=== PATIENT | female | born 2000 | race American Indian/Alaskan Native ===

== ENCOUNTER → 2020-11-11 | Outpatient (CLI) | payer OTHER ==
--- NOTE | 2020-11-11 15:45 | REP ---
INDICATION: GROWTH SCAN, SIZE LESS THAN DATES. COMPARISON: 10/21/2020. TECHNIQUE: Real-time sonographic evaluation of the gravid uterus performed. FINDINGS: Estimated gestational age is33 weeks 2 days, EDC 12/28/2020. Today's measurements indicate appropriate growth. Presentation: Cephalic Placenta left, lateral, grade 2, without evidence of placenta previa. heart rate is recorded at 149 beats per minute. Amniotic fluid is subjectively normal. RJ 11.9, normal range 8.2-24.6 Closed cervical length is measured at 4.2 cm. Biometry chart: BPD: 82 mm, 33 weeks 0 days, 47th percentile. HC: 294 mm, 32 weeks 3 days, 38th percentile AC: 286 mm, 32 weeks 5 days, 41st percentile Femur length: 63 mm, 32 weeks 5 days, 42nd percentile HC to AC ratio: 1.03, normal range 0.95-1.13. Estimated weight: 2029g, 47th percentile. SD ratio umbilical artery 3.51, normal range 1.77-3.75 RI 0.71, normal range 0.48-0.74 anatomy: Previously documented and grossly unremarkable. IMPRESSION: Viable single intrauterine gestation as above. <Electronically signed by Robin Stock > 11/11/20 [id number]
== END ==
LOC: M RAD 14:30
PROVIDERS: ATTEND Obstetrics & Gynecology
DX: Z34.03 Encounter for supervision of normal first pregnancy, third trimester (principal); Z3A.33 33 weeks gestation of pregnancy

== ENCOUNTER 2020-12-31 23:26 | Inpatient (IN) | payer OTHER ==
[~2020-12-31] VITALS: Ht 160 cm; Wt 75.8 kg
[2020-12-31] MEDS ORDERED: PREN29CH2 PO (23:40)
[2020-12-31 23:51] VITALS: BP 124/69
[2021-01-01] VITALS (33 sets, daily range): BP systolic 89–139; BP diastolic 47–92
--- OUTSIDE RECORDS SUMMARY | 2021-01-01 02:14 | CCD ---
Author Author [facility] Organization [facility] Address Unknown Phone Unavailable Support Name Relationship Address Phone CHUCKY BETH Next Of Kin [address] [place] [address] [facility] Next Of Kin [address] [place] [address] Unavailable Re-disclosure Warning The records that you are about to access may contain information from federally-assisted alcohol or drug abuse programs. If such information is present, then the following federally mandated warning applies: This information has been disclosed to you from records protected by federal confidentiality rules (42 CFR part 2). The federal rules prohibit you from making any further disclosure of this information unless further disclosure is expressly permitted by the written consent of the person to whom it pertains or as otherwise permitted by 42 CFR part 2. A general authorization for the release of medical or other information is NOT sufficient for this purpose. The Federal rules restrict any use of the information to criminally investigate or prosecute any alcohol or drug abuse patient.The records that you are about to access may contain highly sensitive health information, the redisclosure of which is protected by Article 27-F of the [facility] Public Health law. If you continue you may have access to information: Regarding HIV / AIDS; Provided by facilities licensed or operated by the [facility] Office of Mental Health; or Provided by the [facility] Office for People With Developmental Disabilities. If such information is present, then the following [facility] mandated warning applies: This information has been disclosed to you from confidential records which are protected by state law. State law prohibits you from making any further disclosure of this information without the specific written consent of the person to whom it pertains, or as otherwise permitted by law. Any unauthorized further disclosure in violation of state law may result in a fine or longterm sentence or both. A general authorization for the release of medical or other information is NOT sufficient authorization for further disc losure. Insurance Providers Payer name Policy type / Coverage type Policy ID Covered democrat ID Covered democrat's relationship to [place] Policy [place] Plan Information [employer] [id number]
[2021-01-01] MEDS ORDERED: LR 1,000 ML IV SCH (02:23)
[2021-01-01] MEDS ORDERED: LACTATED RINGER'S 1000 ML IV ONE (02:30)
[2021-01-01] MEDS ORDERED: FENTANYL 2MCG/ML ROPIVACAINE 0.2% IN 0.9% NACL 100ML IVBAG As Ordered ONE (02:38)
[2021-01-01 02:42] LABS: HEMATOCRIT 34.9 % (36.0-47.0); HEMOGLOBIN 11.2 g/dl (12.0-15.5); MEAN CORPUSCULAR HEMOGLOBIN 29.7 pg (27.0-33.0); MEAN CORPUSCULAR HGB CONC 32.1 g/dl (32.0-36.5); MEAN CORPUSCULAR VOLUME 92.6 fl (80.0-96.0); PLATELET COUNT, AUTOMATED 271 10^3/uL (150-450); RED BLOOD COUNT 3.77 10^6/uL (4.00-5.40); WHITE BLOOD COUNT 16.6 10^3/uL (4.0-10.0)
--- NOTE | 2021-01-01 03:01 | HPEPDOC ---
Obstetrical History & Physical General Date of Admission Jan 01, 2021 at 02:11 Primary Care Physician: Rao Bolaños MD History of Present Illness ACTIVE LABOR AT 40.5 WEEKS Chief Complaint: Contractions, term Information Provided By: Patient Age: 20 : 1 Term: 0 Pre-term: 0 Abortions: 0 Livin Care Care: Limited Care Number of Visits: 6 Dating Final EDC: Dec 28, 2020 Final EDC for Daily Update: Dec 28, 2020 Final EDC by: LMP LMP: Jun 27, 2020 1st Trimester Date: Oct 21, 2020 Weeks + Days: 30.2 Estimated Date of Confinement: Dec 28, 2020 EGA at Admission: 40.5 Antepartum Course Diagnos(e)s ACTIVE LABOR AT TERM LIMITED CARE Height (inches): 63 Pre- weight (lbs.): 150 Admission Weight (lbs.): 168 Change in Weight (lbs.): 18 Past Medical History Past Obstetrical History : 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 Past Medical History Medical History NON CONTRIBUTORY Surgical History: Denies/None Family History Significant Family History: No pertinent family hx Social History Social history NON SMOKER NO ETOH NO VAPING NO RECREATIONAL DRUGS Marital Status: Family situation: Spouse/partner home Psychosocial History: No pertinent psych hx * Smoker: non-smoker Alcohol: Denies Drugs: denies Abuse Violence Screening Have you been hit/kicked/slapp: No Have you been sexually assault: No Imunizations Tdap status: current Influenza Status: needs Allergies Coded Allergies: No Known Allergies (Unverified , 12/31/20) Medications Scheduled No115/Iron/Folic Acid ( 19 Chewable Tablet) 1 Each Tab.chew, 1 TAB PO DAILY Physical Examination Physical Examination GENERAL: Alert and oriented times three. BREAST: . ABDOMEN: Gravid and non-tender to touch. FETUS: Is vertex (VTX) by sterile vaginal examination (SVE), fetus is vertex (VTX) by Arthur. HEART RATE: Regular rate and rhythm. LUNGS: Clear to auscultation (CTA). EXTREMITIES: No edema. No clonus. Deep tendon reflexes (DTRs) + . Other physical findings SF HEIGHT 40 CM VERTEX BOWEL SOUNDS ACTIVE NO VAGINAL BLEEDING OR DISCHARGE Vital Signs/I&O Vital Signs Date Time Temp Pulse Resp B/P (MAP) Pulse Ox O2 Delivery O2 Flow Rate FiO2 01/01/21 00:42 90 16 132/75 (94) 12/31/20 23:51 98.6 98 Room Air Laboratory Data 24H LABS Laboratory Tests 2 01/01/21 02:17: Serology Scanned Report Hepatitis B Testing Pertinent Laboratoy Data Blood Type: A+ RBC Antibody Screen: Negative HIV: Negative Hepatitis B: Negative Rapid Plasma Reagin: Nonreactive Rubella: Immune Varicella: Nonreactive Chlamydia/Gonorrhea: Negative Group B Streptococcus: Negative Cystic Fibrosis: Negative Anatomy Ultrasound Placenta Location: Anterior Normal Anatomy: Yes Placenta Previa: No Steroid Therapy Steroid Therapy: No Vaginal Examination Dilation: 5 cm Effacement: 90% Station: -2 Cervical Consistency: Soft Cervical Position: Anterior Presentation: Cephalic presentation Assessment Variability: Moderate Accelerations: Present Decelerations: None Tocometer Contractions: Yes Frequency: every 1-3 min. Duration: less than 60 seconds Strength: palpated as moderate Assessment/Plan Assessment 20-year-old (G)1 para (P)0 at 40.5 weeks by 30.2 -week ultrasound. Presents to Labor and Delivery (L&D) . Plan Admit and orient. Property Management Bookkeeper and consent. Diet: NPO Group B Streptococcus (GBS) [negative]. Labs and intravenous (IV) per unit protocol. Counseled on Pitocin and induction of labor (IOL). Lactated Ringers (LR): Bolus mL, then at mL/hr. Anticipate [normal spontaneous delivery ()]. C-S as appropriate. Labor and Delivery Counseling REVIEWED RISK OF VAGINAL DELIVERY. POSSIBLE LACERATIONS TO VAGINA THAT REQUIRE REPAIR USE OF FORCEPS OR VACUUM RISK CEPHALOHEMATOMA, LACERATIONS SUBDURAL INJURY ADMISSION TO NICU. POSSIBLE BLOOD TRANSFUSION FOR LIFE THREATENING BLEEDING OR HYSTERECTOMY . RISK OF CS DUE TO OR MATERNAL ISSUES . WITH PITOCIN POSSIBLE INCREASE RISK TACHYSYSTOLE AND CS FOR NRFHT EXPRESSED UNDERSTANDING CATEGORY 1 STRIP SAFE TO PROCEED Rao Bolaños MD Jan 01, 2021 02:51
[2021-01-01] MEDS ORDERED: EPIDURAL/PCA KEYS XX PRN (03:30)
[2021-01-01] MEDS ORDERED: ONDANSETRON 4MG/2ML VIAL IV PRN (03:30)
[2021-01-01] MEDS ORDERED: diphenhydrAMINE 50MG/ML VIAL (J1200) IV PRN (03:30)
[2021-01-01] MEDS ORDERED: LACTATED RINGER'S 1000 ML IV PRN (03:30)
[2021-01-01] MEDS ORDERED: EPIDURAL COMMENT XX SCH (03:30)
[2021-01-01] MEDS ORDERED: REFRIGERATOR IV KEYS XX PRN (03:30)
[2021-01-01] MEDS ORDERED: NALOXONE INJ 0.4MG/1ML VIAL (J2310 PER 1MG) IV PRN (03:30)
[2021-01-01] MEDS ORDERED: FENTANYL/ROPIVACAINE/NACL BAG 100 ML EPIDURAL SCH (03:30)
[2021-01-01] MEDS ORDERED: ePHEDrine SULFATE 25 MG/5 ML(5MG/ML) SYRINGE IV PRN (03:30)
--- NOTE | 2021-01-01 04:22 | IPNPDOC ---
Text Note Date of Service The patient was seen on 01/01/21. NOTE assessment post epidural arom clear liquor fully dilated -1 station catagory 1 strip safe to proceed VS,Marshall, I+O VS, Marshall, I+O Item Value Date Time White Blood Count 16.6 10^3/uL H 01/01/21 0233 Red Blood Count 3.77 10^6/uL L 01/01/21 0233 Hemoglobin 11.2 g/dl L 01/01/21 0233 Hematocrit 34.9 % L 01/01/21 0233 Mean Corpuscular Volume 92.6 fl 01/01/21 0233 Mean Corpuscular Hemoglobin 29.7 pg 01/01/21 0233 Mean Corpuscular Hemoglobin Concent 32.1 g/dl 01/01/21 0233 Red Cell Distribution Width 12.7 % 01/01/21 0233 Platelet Count 271 10^3/uL 01/01/21 0233 Nucleated Red Blood Cells % (auto) 0.0 % 01/01/21 0233 Laboratory Tests 01/01/21 02:33 Vital Signs Date Time Temp Pulse Resp B/P (MAP) Pulse Ox O2 Delivery O2 Flow Rate FiO2 01/01/21 00:42 90 16 132/75 (94) 12/31/20 23:51 98.6 98 Room Air Rao Bolaños MD Jan 01, 2021 04:22
[2021-01-01] MEDS ORDERED: OXYTOCIN DRIP 30 UNITS in IV 1 EA IV SCH (04:30)
[2021-01-01 07:25] LABS: CORD GAS ABE A -7.6; CORD GAS HCO3 A 21.8 MEQ/L; CORD GAS O2 SAT A 47.8 %; CORD GAS PCO2 A 60.5 mmHg; CORD GAS PH A 7.175 UNITS; CORD GAS PO2 A 24.8 mmHg; CORD GAS SBC A 17.3 MEQ/L; CORD GAS TCO2 A 23.7 MEQ/L
[2021-01-01 07:27] LABS: CORD GAS ABE V -4.9; CORD GAS HCO3 V 23.3 MEQ/L; CORD GAS O2 SAT V 37.3 %; CORD GAS PCO2 V 55.3 mmHg; CORD GAS PH V 7.242 UNITS; CORD GAS PO2 V 19.2 mmHg
[2021-01-01] MEDS ORDERED: MOM 30ML SUSPENSION UDC PO PRN (07:30)
[2021-01-01] MEDS ORDERED: OXYTOCIN DRIP 30 UNITS in IV 1 EA IV ONE (07:30)
[2021-01-01] MEDS ORDERED: RHOGAM 300 MCG (1500 IU) INJ (J2790) IM SCH (07:30)
[2021-01-01] MEDS ORDERED: METHYLERGONOVINE MALEATE 0.2 MG TAB PO PRN (07:30)
[2021-01-01] MEDS ORDERED: IBUPROFEN 600MG TAB PO PRN (07:30)
[2021-01-01] MEDS ORDERED: ACETAMINOPHEN TAB 650MG DOSE (2X325MG) PO PRN (07:30)
[2021-01-01] MEDS ORDERED: ACETAMINOPHEN 500 MG TAB PO PRN (07:30)
[2021-01-01] MEDS ORDERED: DIBUCAINE 1% OINTMENT 30GM TOP PRN (07:30)
[2021-01-01] MEDS ORDERED: IBUPROFEN 800 MG TAB PO PRN (07:30)
[2021-01-01] MEDS ORDERED: MEASLES,MUMPS,RUBELLA VACCINE INJ (MMR-II) (90707) SC SCH (07:30)
[2021-01-01] MEDS ORDERED: ANUSOL HC CREAM 30GM TOP PRN (07:30)
[2021-01-01] MEDS ORDERED: OXYTOCIN INJ 10 UNITS/ML VIAL (J2590) IV ONE (07:30)
[2021-01-01] MEDS ORDERED: DOCUSATE SODIUM 100MG CAPSULE PO PRN (07:30)
--- NOTE | 2021-01-01 07:38 | DNPDOC ---
[facility] Delivery Note Delivery Note DATE OF DELIVERY: 01/01/21 PREDELIVERY DIAGNOSIS: -/7 weeks' gestation and labor. POST DELIVERY DIAGNOSIS: Delivered. PROCEDURE: low vacuum due to intermittent late with delayed recovery 1 pull and pop off them with mid line episiotomy EGG TRAYER: Dr.E ZAMARRIPA ANESTHESIA: EPIDURAL ESTIMATED BLOOD LOSS: 200 mL. FINDINGS: 6 pound 11 ounce FEMALE , Score 8/9 , nuchal cord 0 DELIVERY SUMMARY: Patient is a 20-year-old 1 now para 1 who was admitted to labor and delivery for ACTIVE LABOR HAD INTERMITTENT LATES WITH SLOW RECOVERY HAD 1 VACUUM WITH POP OFF 40 HG.MID LINE EPISIOTOMY REPAIRED SPONTANEOUS PLACENTA SPHINCTER INTACT . UTERUS CONTRACTED DOWN UNDER PITOCIN Item Value Date Time Cord Arterial Blood pH 7.175 UNITS 01/01/21717 Cord Arterial Blood PCO2 60.5 mmHg 01/01/21717 Cord Arterial Blood PO2 24.8 mmHg 01/01/21717 Cord Arterial Blood HCO3 21.8 MEQ/L 01/01/21717 Cord Arterial Blood Total CO2 23.7 MEQ/L 01/01/21717 Cord Arterial Blood Base Excess -7.6 01/01/21717 Cord Arterial Base Excess (Standard 17.3 MEQ/L 01/01/21717 Cord Arterial Bld Oxygen Saturation 47.8 % 01/01/21717 Cord Venous Blood pH 7.242 UNITS 01/01/21717 Cord Venous Blood PCO2 55.3 mmHg 01/01/21717 Cord Venous Blood PO2 19.2 mmHg 01/01/21717 Cord Venous Blood HCO3 23.3 MEQ/L 01/01/21717 Cord Venous Blood Total CO2 25.0 MEQ/L 01/01/21717 Cord Venous Base Excess (Actual) -4.9 01/01/21717 Cord Venous Base Excess (Standard) 19.0 MEQ/L 01/01/21717 Cord Venous Blood Oxygen Saturation 37.3 % 01/01/21717 Rao Zamarripa MD Jan 01, 2021 07:36
[2021-01-01] MEDS ORDERED: SLF 3 ML SYR IV PRN (10:45)
[2021-01-01] MEDS: PRENATAL VITAMINS CHEWABLE TABLET PO SCH (10:54)
[2021-01-01] MEDS: SLF 3 ML SYR IV SCH ×2 (14:07→21:25)
[2021-01-02 05:57] VITALS: BP 108/52
[2021-01-02] MEDS: SLF 3 ML SYR IV SCH (06:02)
[2021-01-02 06:51] LABS: HEMATOCRIT 33.7 % (36.0-47.0); HEMOGLOBIN 10.9 g/dl (12.0-15.5); MEAN CORPUSCULAR HEMOGLOBIN 29.8 pg (27.0-33.0); MEAN CORPUSCULAR HGB CONC 32.3 g/dl (32.0-36.5); MEAN CORPUSCULAR VOLUME 92.1 fl (80.0-96.0); PLATELET COUNT, AUTOMATED 237 10^3/uL (150-450); RED BLOOD COUNT 3.66 10^6/uL (4.00-5.40)
--- NOTE | 2021-01-02 07:18 | IPNPDOC ---
Progress Note Date of Service: Jan 02, 2021 Progress Note Ms. Torres is a 20 yo G1 now P1 who underwent an uncomplicated VAVD on 01Jan2021 after being admitted for labor. She is currently recovering on the [place]. Kristin reports feeling well this morning. She is ambulating, voiding, tolerating a regular diet, and has minimal lochia. Vitals - VSS, afebrile, normotensive, non tachycardic. Baby at breast General - Laying in bed, AAOX3, pleasant and conversant, NAD Abdomen - Fundus firm at U-2. No fundal tenderness Extremities - No edema Kristin is doing well and is making an appropriate recovery. Continue to encourage ambulation and . Continue routine care. Anticipate discharge home tomorrow. Edgar Stockton DO VS, I&O, 24H, Marshall Vital Signs/I&O Vital Signs Date Time Temp Pulse Resp B/P (MAP) Pulse Ox O2 Delivery O2 Flow Rate FiO2 01/02/21 05:57 97.9 72 16 108/52 (70) 01/01/21 10:15 100 12/31/20 23:51 Room Air I&O- Last 24 Hours up to 6 AM 01/02/21 06:00 Intake Total 3085 ml Output Total 1000 ml Balance 2085 ml Laboratory Data 24H LABS Laboratory Tests 2 01/01/21 07:18: Cord Arterial Blood pH 7.175, Cord Arterial Blood PCO2 60.5, Cord Arterial Blood PO2 24.8, Cord Arterial Blood HCO3 21.8, Cord Arterial Blood Total CO2 23.7, Cord Arterial Blood Base Excess -7.6, Cord Arterial Base Excess (Standard 17.3, Cord Arterial Bld Oxygen Saturation 47.8, Cord Venous Blood pH 7.242, Cord Venous Blood PCO2 55.3, Cord Venous Blood PO2 19.2, Cord Venous Blood HCO3 23.3, Cord Venous Blood Total CO2 25.0, Cord Venous Base Excess (Actual) -4.9, Cord Venous Base Excess (Standard) 19.0, Cord Venous Blood Oxygen Saturation 37.3 01/02/21 06:28: Nucleated Red Blood Cells % (auto) 0.0 CBC/BMP Laboratory Tests 01/02/21 06:28 EDGAR STOCKTON DO Jan 02, 2021 07:18
[2021-01-02 08:30] VITALS: BP 117/63
[2021-01-02] MEDS: PRENATAL VITAMINS CHEWABLE TABLET PO SCH (08:55)
[2021-01-02] MEDS ORDERED: BOOSTRIX/ADACEL VACCINE (DIPHTH/PERTUSS/ACELL/TETANUS) 0.5ML SYR IM ONE (09:00)
[2021-01-02 18:00] VITALS: BP 112/59
[2021-01-03 05:46] VITALS: BP 110/61
--- NOTE | 2021-01-03 06:46 | IPNPDOC ---
Progress Note Date of Service: Jan 03, 2021 Day#: 2 Progress Note SUBJECT: 20yo PPD2 s/p VAVD with midline episotomy, uncomplicat ed. She has been ambulating, voiding spontaneously without issue and tolerating regular diet. Breast feeding without issue. Reports lochia is less than a normal period. Patient is ambulating well. Reports some cramping with . Denies any pain. Voiding and stooling without difficulty. OBJECTIVE: VITAL SIGNS: Within normal limits, afebrile. Alert and oriented times three. No increased WOB Heart rate: non-tachy Abdomen: Fundus firm at U-2. Soft, NTTP. [Minimal] lochia per patient ASSESSMENT: 20yo PPD2 s/p VAVD with midline episotomy, uncomplicated. Vitals within normal limits, afebrile, hemodynamically stable with no evidence of infection. PLAN: 1. Discharge to home today. 2. Tylenol and Motrin for pain. 3. Encourage breast feeding and ambulation. 4. [Minipill] for contraception to be picked up at [place], educated on risks of close interval 5. Routine PP visit in 6 weeks in clinic. 6. Discussed return precautions at length. VS, I&O, 24H, Fishbone Vital Signs/I&O Vital Signs Date Time Temp Pulse Resp B/P (MAP) Pulse Ox O2 Delivery O2 Flow Rate FiO2 01/03/21 05:46 98.3 81 18 110/61 (77) 01/02/21 08:30 99 12/31/20 23:51 Room Air AYE HASKINS DO Jan 03, 2021 06:46
--- NOTE | 2021-01-03 06:46 | OBDS ---
[facility] Obstetrical Discharge Sum. Obstetrical Discharge Summary Date: Jan 03, 2021 A/P, Post Course List any complications SUBJECT: 20yo PPD2 s/p VAVD with midline episotomy, uncomplicated. She has been ambulating, voiding spontaneously without issue and tolerating regular diet. Breast feeding without issue. Reports lochia is less than a normal period. Patient is ambulating well. Reports some cramping with jared astfeeding. Denies any pain. Voiding and stooling without difficulty. OBJECTIVE: VITAL SIGNS: Within normal limits, afebrile. Alert and oriented times three. No increased WOB Heart rate: non-tachy Abdomen: Fundus firm at U-2. Soft, NTTP. [Minimal] lochia per patient ASSESSMENT: 20yo PPD2 s/p VAVD with midline episotomy, uncomplicated. Vitals within normal limits, afebrile, hemodynamically stable with no evidence of infection. PLAN: 1. Discharge to home today. 2. Tylenol and Motrin for pain. 3. Encourage breast feeding and ambulation. 4. [Minipill] for contraception to be picked up at [place], educated on risks of close interval 5. Routine PP visit in 6 weeks in clinic. 6. Discussed return precautions at length. AYE HASKINS DO Jan 03, 2021 06:46
[2021-01-03] MEDS: SLF 3 ML SYR IV SCH (07:08)
[2021-01-03] MEDS: PRENATAL VITAMINS CHEWABLE TABLET PO SCH (07:23)
== END 2021-01-03 11:25 | disposition home or self-care (01) | DRG 807 ==
LOC: M LDO 23:26 → M LDI 01-01 02:11 → M OBS 01-01 10:14
PROVIDERS: ADMIT Obstetrics & Gynecology; ATTEND Obstetrics & Gynecology
PROC: 10D07Z6 Extraction of Products of Conception, Vacuum, Via Natural or Artificial Opening (ICD-10-PCS; principal; 2021-01-01)
PROC: 10907ZC Drainage of Amniotic Fluid, Therapeutic from Products of Conception, Via Natural or Artificial Opening (ICD-10-PCS; 2021-01-01)
PROC: 0W8NXZZ Division of Female Perineum, External Approach (ICD-10-PCS; 2021-01-01)
DX: O48.0 Post-term pregnancy (principal); Z37.0 Single live birth; Z3A.40 40 weeks gestation of pregnancy

== ENCOUNTER 2022-05-14 16:26 | Emergency (ER) | payer OTHER ==
[~2022-05-14] VITALS: Ht 160 cm; Wt 70.8 kg
[~2022-05-14 16:26] MED LIST: PREN29CH2 PO
[2022-05-14] MEDS ORDERED: ACET-683 PO (17:00)
[2022-05-14 21:23] VITALS: BP 126/78
[2022-05-14] MEDS ORDERED: IBUPROFEN 600MG TAB PO ONE (21:40)
== END 2022-05-14 22:20 | disposition left against medical advice (07) ==
LOC: M ED 16:26
DX: Z53.21 Procedure and treatment not carried out due to patient leaving prior to being seen by health care provider (principal)